=== PATIENT | male | born 1990 | race Caucasian/White ===

== ENCOUNTER 2016-12-15 09:38 | Emergency (ER) | payer OTHER ==
[~2016-12-15] VITALS: Ht 170.2 cm; Wt 65.9 kg
[2016-12-15 10:29] LABS: AMPHET/METH SCREEN,URINE NEGATIVE (NEGATIVE); BARBITURATE SCREEN, URINE NEGATIVE (NEGATIVE); BENZODIAZEPINES SCREEN,URINE NEGATIVE (NEGATIVE); CANNABINOID SCREEN,URINE NEGATIVE (NEGATIVE); COCAINE SCREEN,URINE NEGATIVE (NEGATIVE); METHADONE SCREEN, URINE NEGATIVE (NEGATIVE); OPIATE SCREEN,URINE NEGATIVE (NEGATIVE)
[2016-12-15] MEDS ORDERED: SODIUM CHLORIDE 0.9% 1,000 ML IV ONE (10:30)
[2016-12-15 10:34] LABS: PHENCYCLIDINE SCREEN,URINE NEGATIVE (NEGATIVE)
[2016-12-15 10:58] LABS: APPEARANCE,URINE CLEAR (CLEAR); BILIRUBIN,URINE NEGATIVE (NEGATIVE); GLUCOSE, URINE (UA) NEGATIVE (NEGATIVE); KETONES,URINE NEGATIVE (NEGATIVE); LEUKOCYTE ESTERASE ,URINE NEGATIVE (NEGATIVE); NITRATE,URINE NEGATIVE (NEGATIVE); OCCULT BLOOD,URINE NEGATIVE (NEGATIVE); PH,URINE 7.5 (5.0-8.0); PROTEIN,URINE NEGATIVE (NEGATIVE)
[2016-12-15 11:02] LABS: GLUCOSE,POINT OF CARE 89 MG/DL (70-110)
[2016-12-15 11:13] LABS: BASOPHILS # (AUTO) 0.02 K/uL (0.00-0.20); BASOPHILS % (AUTO) 0.4 % (0.0-2.0); EOSINOPHILS # (AUTO) 0.02 K/uL (0.00-0.70); EOSINOPHILS % (AUTO) 0.35 % (1.0-6.0); HEMATOCRIT 49.2 % (41-53); HEMOGLOBIN 16.6 g/dL (13.5-17.5); LYMPHOCYTES # (AUTO) 1.1 K/uL (1.0-4.8); LYMPHOCYTES % (AUTO) 17.5 % (22.0-44.0); MEAN CORPUSCULAR HEMOGLOBIN 30.9 pg (26.0-34.0); MEAN CORPUSCULAR HGB CONC 33.7 G/dL (31.0-37.0); MEAN CORPUSCULAR VOLUME 92 fL (80-100); MONOCYTES # (AUTO) 0.3 K/uL (0.1-1.0); MONOCYTES % (AUTO) 4.9 % (2.0-9.0); NEUTROPHILS # (AUTO) 4.9 K/uL (1.8-7.7); NEUTROPHILS % (AUTO) 76.9 % (40.0-70.0); PLATELET COUNT (AUTO) 253 K/uL (150-450); RED BLOOD CELL COUNT(AUTO) 5.37 MIL/uL (4.50-5.90); RED CELL DISTRIBUTION WIDTH 13.8 % (11.5-14.5)
[2016-12-15 11:14] LABS: ANION GAP 6 mmol/L (8-16); CALCIUM, TOTAL 9.2 mg/dL (8.8-10.5); CARBON DIOXIDE 29 mmol/L (22-29); CHLORIDE 102 mmol/L (98-107); CREATININE 0.77 mg/dL (0.60-1.30); GLOMERULAR FILTR. RATE CALC > 60 mL/min (>60); GLUCOSE,RANDOM 92 mg/dL (70-110); POTASSIUM 4.1 mmol/L (3.5-5.1); SODIUM SERUM 137 mmol/L (136-145); UREA NITROGEN, BLOOD 9 mg/dL (7-18)
[2016-12-15 11:15] LABS: BACTERIA,URINE Few /HPF (None Seen); RBC,URINE None Seen /HPF (0-2); SQUAMOUS EPITHELIAL CELL,UR Rare /LPF (None Seen); WBC,URINE 0-2 /HPF (0-5)
[2016-12-15 11:20] LABS: ALANINE AMINOTRANSFERASE 97 U/L (12-78); ALBUMIN 4.6 g/dL (3.4-5.0); ALKALINE PHOSPHATASE 96 U/L (46-116); ASPARTATE AMINOTRANSFERASE 20 U/L (15-37); BILIRUBIN,TOTAL 0.8 mg/dL (0.1-1.0)
[2016-12-15 11:38] LABS: LACTIC ACID 0.6 mmol/L (0.4-2.0)
[2016-12-15 11:56] VITALS: BP 120/72
== END 2016-12-15 12:06 | disposition home or self-care (01) ==
LOC: EMS 09:45 → EDBD 09:45 → EMS 12:06
DX: G40.909 Epilepsy, unspecified, not intractable, without status epilepticus (principal); R25.2 Cramp and spasm; F17.210 Nicotine dependence, cigarettes, uncomplicated
CPT/HCPCS: 36415; 70450; 80053; 80307; 81001; 82948; 82962; 83605; 85025; 93005; 96360; 99285; J7030

== ENCOUNTER 2016-12-15 18:09 | Inpatient (IN) | payer MEDICAID, OTHER ==
[~2016-12-15] VITALS: Ht 170.2 cm; Wt 64.4 kg
[2016-12-15 18:31] LABS: BASOPHILS # (AUTO) 0.04 K/uL (0.00-0.20); BASOPHILS % (AUTO) 0.6 % (0.0-2.0); EOSINOPHILS # (AUTO) 0.04 K/uL (0.00-0.70); EOSINOPHILS % (AUTO) 0.59 % (1.0-6.0); HEMATOCRIT 47.8 % (41-53); HEMOGLOBIN 16.1 g/dL (13.5-17.5); LYMPHOCYTES # (AUTO) 1.5 K/uL (1.0-4.8); LYMPHOCYTES % (AUTO) 22.4 % (22.0-44.0); MEAN CORPUSCULAR HEMOGLOBIN 30.8 pg (26.0-34.0); MEAN CORPUSCULAR HGB CONC 33.8 G/dL (31.0-37.0); MEAN CORPUSCULAR VOLUME 91 fL (80-100); MONOCYTES # (AUTO) 0.4 K/uL (0.1-1.0); MONOCYTES % (AUTO) 5.5 % (2.0-9.0); NEUTROPHILS # (AUTO) 4.8 K/uL (1.8-7.7); PLATELET COUNT (AUTO) 270 K/uL (150-450); RED BLOOD CELL COUNT(AUTO) 5.25 MIL/uL (4.50-5.90); RED CELL DISTRIBUTION WIDTH 13.8 % (11.5-14.5)
[2016-12-15 18:42] LABS: AMPHET/METH SCREEN,URINE NEGATIVE (NEGATIVE); BARBITURATE SCREEN, URINE NEGATIVE (NEGATIVE); BENZODIAZEPINES SCREEN,URINE NEGATIVE (NEGATIVE); CANNABINOID SCREEN,URINE NEGATIVE (NEGATIVE); COCAINE SCREEN,URINE NEGATIVE (NEGATIVE); METHADONE SCREEN, URINE NEGATIVE (NEGATIVE); OPIATE SCREEN,URINE NEGATIVE (NEGATIVE)
[2016-12-15 18:43] LABS: ANION GAP 7 mmol/L (8-16); CALCIUM, TOTAL 9.1 mg/dL (8.8-10.5); CARBON DIOXIDE 29 mmol/L (22-29); CHLORIDE 102 mmol/L (98-107); CREATININE 0.82 mg/dL (0.60-1.30); GLOMERULAR FILTR. RATE CALC > 60 mL/min (>60); GLUCOSE,RANDOM 116 mg/dL (70-110); POTASSIUM 3.7 mmol/L (3.5-5.1); SODIUM SERUM 138 mmol/L (136-145); UREA NITROGEN, BLOOD 7 mg/dL (7-18)
[2016-12-15 18:46] LABS: ALANINE AMINOTRANSFERASE 89 U/L (12-78); ALBUMIN 4.5 g/dL (3.4-5.0); ALKALINE PHOSPHATASE 94 U/L (46-116); ASPARTATE AMINOTRANSFERASE 17 U/L (15-37); BILIRUBIN,TOTAL 0.7 mg/dL (0.1-1.0); TOTAL PROTEIN, SERUM 7.7 g/dL (6.4-8.2)
[2016-12-15 18:51] LABS: PHENCYCLIDINE SCREEN,URINE NEGATIVE (NEGATIVE)
[2016-12-15] MEDS ORDERED: ZOLPIDEM TARTRATE 10 MG TABLET PO PRN (19:45)
[2016-12-15] MEDS ORDERED: HALOPERIDOL 5 MG TABLET PO PRN (19:45)
[2016-12-15 20:35] LABS: CHOLESTEROL 222 mg/dL (131-200); HDL CHOLESTEROL 74 mg/dL (40-60); LDL CHOL (CALC.) 137 mg/dL (0-130); TRIGLYCERIDES 57 mg/dL (15-150)
[2016-12-15 20:53] LABS: VALPROIC ACID < 3 mcg/mL (50-100)
[2016-12-15] MEDS ORDERED: LORazepam 2 MG TABLET PO ONE (21:00)
[2016-12-15] MEDS ORDERED: DIVALPROEX SODIUM 250 MG DR TABLET PO ONE (21:00)
[2016-12-15 21:47] VITALS: BP 111/74
[2016-12-15 22:15] LABS: THYROID STIMULATING HORMONE 0.72 uIU/mL (0.36-3.74)
[2016-12-16] MEDS: LevETIRAcetam 500 MG TABLET PO SCH ×2 (08:58→16:16)
[2016-12-16 09:00] VITALS: BP 116/86
[2016-12-16] MEDS: NICOTINE 21 MG/24 HOUR PATCH TD SCH (12:34)
[2016-12-16 17:23] VITALS: BP 118/72
[2016-12-16] MEDS: OLANZapine 5 MG TABLET PO SCH (19:29)
[2016-12-17 00:49] VITALS: BP 133/68
[2016-12-17 03:50] VITALS: BP 106/80
[2016-12-17] MEDS: LORazepam 2 MG TABLET PO PRN ×2 (03:53→13:28)
[2016-12-17] MEDS: LevETIRAcetam 500 MG TABLET PO SCH ×2 (08:57→17:19)
[2016-12-17] MEDS: FLUoxetine HCL 20 MG CAPSULE PO SCH (08:57)
[2016-12-17] MEDS: NICOTINE 21 MG/24 HOUR PATCH TD SCH (08:58)
[2016-12-17 09:00] VITALS: BP 149/99
[2016-12-17 19:36] VITALS: BP 119/76
[2016-12-17] MEDS: OLANZapine 5 MG TABLET PO SCH (21:33)
[2016-12-18 06:10] VITALS: BP 111/70
[2016-12-18 08:06] LABS: ALANINE AMINOTRANSFERASE 58 U/L (12-78); ALBUMIN 4.4 g/dL (3.4-5.0); ALKALINE PHOSPHATASE 89 U/L (46-116); ANION GAP 7 mmol/L (8-16); ASPARTATE AMINOTRANSFERASE 14 U/L (15-37); BILIRUBIN,TOTAL 0.9 mg/dL (0.1-1.0); CALCIUM, TOTAL 9.1 mg/dL (8.8-10.5); CARBON DIOXIDE 28 mmol/L (22-29); CHLORIDE 103 mmol/L (98-107); CREATININE 0.97 mg/dL (0.60-1.30); GLOMERULAR FILTR. RATE CALC > 60 mL/min (>60); GLUCOSE,RANDOM 76 mg/dL (70-110); POTASSIUM 3.9 mmol/L (3.5-5.1); SODIUM SERUM 138 mmol/L (136-145); TOTAL PROTEIN, SERUM 7.7 g/dL (6.4-8.2); UREA NITROGEN, BLOOD 15 mg/dL (7-18)
[2016-12-18 09:00] VITALS: BP 98/64
[2016-12-18] MEDS: FLUoxetine HCL 20 MG CAPSULE PO SCH (09:01)
[2016-12-18] MEDS: LevETIRAcetam 500 MG TABLET PO SCH ×2 (09:01→17:32)
[2016-12-18] MEDS: NICOTINE 21 MG/24 HOUR PATCH TD SCH (09:02)
[2016-12-18] MEDS: LORazepam 2 MG TABLET PO PRN (14:22)
[2016-12-18 20:01] VITALS: BP 129/70
[2016-12-18] MEDS: OLANZapine 10 MG TABLET PO SCH (20:48)
[2016-12-19] MEDS: LORazepam 2 MG TABLET PO PRN (05:40)
[2016-12-19 05:45] VITALS: BP 114/62
[2016-12-19] MEDS: LevETIRAcetam 500 MG TABLET PO SCH ×2 (09:42→16:27)
[2016-12-19] MEDS: FLUoxetine HCL 20 MG CAPSULE PO SCH (09:42)
[2016-12-19] MEDS: NICOTINE 21 MG/24 HOUR PATCH TD SCH (09:44)
[2016-12-19] MEDS ORDERED: FLUO-191 PO (10:13)
[2016-12-19] MEDS ORDERED: LEVE500T53 PO (10:13)
[2016-12-19] MEDS ORDERED: OLAN10TA3 PO (10:13)
[2016-12-19 13:34] VITALS: BP 102/61
[2016-12-19 16:30] VITALS: BP 129/70
[2016-12-19] MEDS: OLANZapine 10 MG TABLET PO SCH (20:17)
[2016-12-20 08:00] VITALS: BP 104/52
[2016-12-20] MEDS: LORazepam 2 MG TABLET PO PRN (08:59)
[2016-12-20] MEDS: FLUoxetine HCL 20 MG CAPSULE PO SCH (08:59)
[2016-12-20] MEDS: LevETIRAcetam 500 MG TABLET PO SCH ×2 (08:59→16:29)
[2016-12-20] MEDS: NICOTINE 21 MG/24 HOUR PATCH TD SCH (09:00)
[2016-12-20 16:33] VITALS: BP 112/60
[2016-12-20] MEDS: OLANZapine 10 MG TABLET PO SCH (20:28)
[2016-12-21 08:14] VITALS: BP 99/79
[2016-12-21] MEDS: LevETIRAcetam 500 MG TABLET PO SCH ×2 (09:02→16:21)
[2016-12-21] MEDS: FLUoxetine HCL 20 MG CAPSULE PO SCH (09:03)
[2016-12-21] MEDS: LORazepam 2 MG TABLET PO PRN ×2 (09:04→16:23)
[2016-12-21] MEDS: NICOTINE 21 MG/24 HOUR PATCH TD SCH (09:05)
[2016-12-21 16:30] VITALS: BP 120/62
== END 2016-12-21 19:00 | disposition home or self-care (01) | DRG 750 ==
LOC: EMS 18:11 → 3EI 21:00
PROVIDERS: ADMIT Psychiatry & Neurology Psychiatry; ATTEND Psychiatry & Neurology Psychiatry
DX: F25.1 Schizoaffective disorder, depressive type (principal); R56.9 Unspecified convulsions; R45.851 Suicidal ideations; F32.9 Major depressive disorder, single episode, unspecified; F41.9 Anxiety disorder, unspecified; F17.210 Nicotine dependence, cigarettes, uncomplicated; F15.90 Other stimulant use, unspecified, uncomplicated; E78.5 Hyperlipidemia, unspecified; R79.89 Other specified abnormal findings of blood chemistry; Z91.5 Personal history of self-harm; Z59.0 Homelessness
CPT/HCPCS: 80074; 84443; 87081; 99285; G0480